=== PATIENT | female | born 2000 | race African-American/Black ===

== ENCOUNTER 2021-11-17 14:12 | Emergency (ER) | payer MEDICAID, SELFPAY ==
[2021-11-17 14:18] VITALS: BP 126/81; PULSE 97; RESP 16; TEMP 36.8; O2SAT 100
--- NOTE | 2021-11-17 14:28 | ED.URI ---
HPI - URI/Sore Throat General Chief Complaint: Upper Respiratory Infection Stated Complaint: BLEEDING TONSILS Time Seen by Provider: 11/17/21 14:22 Source: patient Mode of arrival: ambulatory Limitations: no limitations History of Present Illness HPI Narrative: Patient presents today complaining of possible bleeding on her left tonsil that she believes is from a scratch in her throat. She has no pain to the throat, but states she has some drainage in her throat, looked back there and saw what she believes is a scratch to her left tonsil. She wanted to come in for evaluation and make sure she did not have, tonsil cancer. She denies recent illness, fever, pain, or any additional symptoms besides the postnasal drainage. Related Data Home Medications Medication Instructions Recorded Confirmed levonorgestrel-ethinyl estradiol 1 tablet PO DAILY 11/17/21 11/17/21 0.1 mg-20 mcg tablet (Vienva) Allergies Allergy/AdvReac Type Severity Reaction Status Date / Time No Known Allergies Allergy Verified 11/17/21 14:23 Review of Systems Review of Systems: CONSTITUTIONAL: Denies body aches, fever, chills, or sweats. EYES: Denies visual changes, redness, or discharge. ENT: Denies rhinorrhea, congestion, sore throat, or otalgia.+ Postnasal drip, scratch to left tonsil CARDIOVASCULAR: Denies chest pain, palpitations, or edema. RESPIRATORY: Denies cough or dyspnea. GASTROINTESTINAL: Denies abdominal pain, nausea, vomiting, or diarrhea. GENITOURINARY: Denies dysuria or hematuria. SKIN: Denies rash, itching, or wounds. MUSCULOSKELETAL: Denies back pain, joint pain, or myalgia. NEUROLOGIC: Denies headache, numbness, tingling, or weakness. PSYCH: Denies depression or anxiety. PMFSH Comments At time of signature, I have reviewed and agree with nursing past medical, surgical, social and family history unless otherwise noted. Please see nursing chart for further information. There is no relevant family history pertinent to the presenting complaint Exam Narrative: GENERAL: Well-appearing, well-nourished, and in no acute distress. HEAD: Normocephalic, atraumatic. EYES: EOMI. No redness or drainage. Conjunctivae normal. ENT: Mucous membranes pink and moist. No rhinorrhea. Throat normal with obvious small vessel that runs through the middle of the left tonsil. Tonsils are 2+ without erythema, edema, or exudate. Uvula midline. NECK: Normal AROM. Supple. No lymphadenopathy. CHEST: No respiratory distress. EXTREMITIES: Normal range of motion. No edema. SKIN: Warm, dry, no rash. Capillary refill normal. Normal skin turgor. NEURO: No focal deficits. Alert and oriented x3. Gait steady. PSYCH: Normal affect. No signs of depression or anxiety. Course Course Level of Care: Express Care Visit Vital Signs Vital signs: Vital Signs Temperature 98.3 F 11/17/21 14:18 Pulse Rate 97 11/17/21 14:18 Respiratory Rate 16 11/17/21 14:18 Blood Pressure 126/81 11/17/21 14:18 Pulse Oximetry 100 11/17/21 14:18 Oxygen Delivery Room Air 11/17/21 14:18 Temperature 98.3 F 11/17/21 14:18 Pulse Rate 97 11/17/21 14:18 Respiratory Rate 16 11/17/21 14:18 Blood Pressure 126/81 11/17/21 14:18 Pulse Oximetry 100 11/17/21 14:18 Oxygen Delivery Room Air 11/17/21 14:18 MDM - URI/Sore Throat Differential Diagnosis Differential diagnosis: Likely upper respiratory infection, pharyngitis and other (Tonsillitis, strep throat, tonsil stone, injury, worried well) Critical Care Time Critical Care Time Critical Care Time: No Discharge Plan Discharge Clinical Impression: Normal throat exam Patient Disposition: Home, Self-Care Condition: Stable Additional Instructions: Your throat exam is normal. What you likely saw that alarmed you was a small vessel running through your left tonsil. This is normal. Follow-up with your PCP with any concerns. Your blood pressure was elevated above 120/80 today at [facility]
== END 2021-11-17 14:32 | disposition home or self-care (01) ==
PROVIDERS: Emergency Provider Nurse Practitioner
DX: Z71.1 Person with feared health complaint in whom no diagnosis is made (principal)
CPT/HCPCS: 99211; G0463

== ENCOUNTER 2022-07-19 10:20 | Emergency (ER) | payer OTHER, SELFPAY ==
[2022-07-19 10:30] VITALS: BP 155/89; PULSE 106; RESP 16; TEMP 37.1; O2SAT 100
--- NOTE | 2022-07-19 12:05 | ED.GENADULT ---
HPI - General Adult General Chief complaint: Unspecified Stated complaint: Requesting to know how far along Time Seen by Provider: 07/19/22 12:04 History of Present Illness HPI narrative: Patient is a 22-year-old G0 female here requesting test. Patient states that she had unprotected sex on July 02 and did take a Plan B pill afterwards. States that she was due for her menstrual cycle at the end of June but she missed this. She took a positive test yesterday and is requesting confirmation of this. This is an undesired that she plans to terminate if positive. Denies any vaginal bleeding, abdominal pain, sudden gush of fluids. Related Data Home Medications Medication Instructions Recorded Confirmed levonorgestrel-ethinyl estradiol 1 tablet PO DAILY 11/17/21 11/17/21 0.1 mg-20 mcg tablet (Vienva) Allergies Allergy/AdvReac Type Severity Reaction Status Date / Time No Known Allergies Allergy Verified 07/19/22 12:29 Review of Systems Review of Systems: Gen.: Denies fevers or chills Eyes: Denies eye pain or visual change ENT: Denies congestion Respiratory: Denies shortness of breath or cough CV: Denies chest pain or palpitations GI: Denies abdominal pain nausea, emesis or diarrhea denies burning, urgency, frequency or hematuria Musculoskeletal: Denies back pain or muscle pain Neuro: Denies numbness, tingling, weakness or focal weakness Skin: Denies rash Except as documented, all other systems reviewed and negative Exam Narrative: APPEARANCE: Well appearing, no pain in distress, well-nourished. Head: Normocephalic and atraumatic. EYES: PERRLA/EOMI, conjunctivae clear NOSE: No nasal drainage EARS: External ear normal in appearance THROAT: Oropharynx is clear. Mucous membranes are moist. NECK: Supple. No adenopathy, no masses. RESPIRATORY: Airway patent, respirations nonlabored. Clear to auscultation bilaterally, no rales, rhonchi, wheezing. CARDIOVASCULAR: Regular rate and rhythm without murmurs, rubs, or gallops. ABDOMINAL: Normoactive bowel sounds. Soft, nontender, nondistended. No rebound tenderness or guarding. MUSCULOSKELETAL: Extremities are warm and well-perfused. Moves all extremities well. No edema. NEURO: Normal speech. No focal neurologic deficits. SKIN: Skin is warm and dry. No rashes. PSYCHIATRIC: Normal affect/mood.. Course Vital Signs Vital signs: Vital Signs Temperature 98.7 F 07/19/22 10:30 Pulse Rate 106 H 07/19/22 10:30 Respiratory Rate 16 07/19/22 10:30 Blood Pressure 155/89 H 07/19/22 10:30 Pulse Oximetry 100 07/19/22 10:30 Oxygen Delivery Room Air 07/19/22 10:30 Temperature 98.7 F 07/19/22 10:30 Pulse Rate 106 H 07/19/22 10:30 Respiratory Rate 18 07/19/22 12:26 Blood Pressure 155/89 H 07/19/22 10:30 Pulse Oximetry 99 07/19/22 12:26 Oxygen Delivery Room Air 07/19/22 10:30 Medical Decision Making MDM Narrative Medical decision making narrative: 22-year-old female here requesting test after positive test at home. Asymptomatic aside from amenorrhea. test is positive here. This is not a desired and patient made an appointment at the [facility] next week for termination. Return precautions were discussed and she voiced understanding. Vital Signs Vital Signs: Vital Signs Temperature 98.7 F 07/19/22 10:30 Pulse Rate 106 H 07/19/22 10:30 Respiratory Rate 16 07/19/22 10:30 Blood Pressure 155/89 H 07/19/22 10:30 Pulse Oximetry 100 07/19/22 10:30 Oxygen Delivery Room Air 07/19/22 10:30 Temperature 98.7 F 07/19/22 10:30 Pulse Rate 106 H 07/19/22 10:30 Respiratory Rate 18 07/19/22 12:26 Blood Pressure 155/89 H 07/19/22 10:30 Pulse Oximetry 99 07/19/22 12:26 Oxygen Delivery Room Air 07/19/22 10:30 Lab Data Labs: UCG Bedside Result Positive Reference Range: Negat
[2022-07-19 12:26] VITALS: RESP 18; O2SAT 99
[2022-07-19 13:04] VITALS: BP 122/72; PULSE 69; RESP 18; O2SAT 100
== END 2022-07-19 13:05 | disposition home or self-care (01) ==
PROVIDERS: Emergency Provider Physician Assistant
DX: Z32.01 Encounter for pregnancy test, result positive (principal)
CPT/HCPCS: 81025; 99282